=== PATIENT | male | born 1965 | race Caucasian/White ===

== ENCOUNTER 2024-05-12 16:59 | Emergency (ER) | payer SELFPAY ==
[2024-05-12 17:01] LABS: Glucose - Point of Care 101 mg/dl (70-99)
[2024-05-12 17:07] VITALS: BP 154/113
[2024-05-12 17:23] VITALS: BMI 36.2
[2024-05-12 17:25] VITALS: BP 138/89
[2024-05-12 17:25] LABS: % Basophils 0.7 % (0-2); % Eosinophils 0.9 % (0-6); % Immature Granulocytes 0.2 % (0-0.5); % Lymphocytes 38.1 % (20.5-51.1); % Monocytes 8.2 % (1.7-9.3); % Neutrophils 51.9 % (42.2-75.2); Absolute Basophils 0.1 10^3/uL (0-0.2); Absolute Eosinophils 0.1 10^3/uL (0-0.7); Absolute Lymphocytes 3.1 10^3/uL (1.2-3.4); Absolute Monocytes 0.7 10^3/uL (0.1-0.6); Absolute Neutrophils 4.2 10^3/uL (1.4-6.5); Hematocrit 44.5 % (39.0-52.0); Hemoglobin 15.8 g/dL (13.0-18.0); Mean Corp Hgb Conc. 35.5 g/dL (33.0-37.0); Mean Corpuscular Hgb 31.5 pg (27.0-31.0); Mean Corpuscular Volume 88.6 fL (80.0-94.0); Mean Platelet Volume 9.5 fL (7.4-10.4); Nucleated Red Blood Cells % 0 % (-); Platelet Count 250 10^3/uL (130-400); Red Blood Cell Count 5.02 10^6/uL (4.70-6.10); Red Cell Dist. Width 14.1 % (11.5-14.5); White Blood Cell Count 8.1 10^3/uL (4.8-10.8)
[2024-05-12 17:38] LABS: ALT (SGPT) 38 U/L (0-50); AST (SGOT) 28 U/L (17-59); Albumin 5.4 g/dl (3.5-5.0); Alkaline Phosphatase 67 U/L (38-126); Blood Urea Nitrogen 12 mg/dl (9-20); Calcium 9.4 mg/dl (8.4-10.2); Carbon Dioxide 19 mmol/L (22-30); Chloride 106 mmol/L (98-107); Estimated Creatinine Clearance 107 ml/min; Glucose 112 mg/dl (70-99); Potassium 4.2 mmol/L (3.5-5.1); Sodium 142 mmol/L (135-145); Total Bilirubin 0.7 mg/dl (0.2-1.3); Total Protein 7.8 g/dl (6.3-8.2); eGFR > 60.00
--- NOTE | 2024-05-12 17:47 | ED.GENMED ---
History of Present Illness
<QUINTEN Segura Last Filed: 05/12/24 18:46>
General
Chief Complaint: Change in Mental Status
Source: patient
Exam Limitations: none
Time Seen by Provider: 05/12/24 17:04
History of Present Illness
History of Present Illness:
58-year-old male called in as a rapid response from the hospital. He fell. He states he remembers falling. He does not remember hitting his head. He is not sure if he lost consciousness. Bystanders seem to think he was confused and a rapid
response was called. He is brought here to the emergency room. He seems to repeat himself. He denies any headache chest pain or shortness of breath. He notes only embarrassment from the fall. He denies any unilateral numbness or weakness.
Phy Exam
<QUINTEN Segura Last Filed: 05/12/24 18:46>
Physical Exam
Physical Exam:
General: Well-developed male no acute respiratory distress
HEENT: Normocephalic atraumatic
Heart: Regular rate and rhythm
Lungs: Clear no wheeze
Neurologic exam: Alert and oriented to person and place. There is an occasional slurred words but this is not consistent. There may be a subtle right-sided facial droop again this is not dorsalis obvious or consistent. No drift on exam
finger-nose intact. There is horizontal nystagmus noted.
Musculoskeletal exam: The spine is nontender good range of motion all extremities
Course
<QUINTEN Segura Last Filed: 05/12/24 18:46>
Orders/Labs/Results
Orders:
Orders
05/12/24 17:16
EKG [Electrocardiogram (*1)] Urgent
Reason for Study: Tachycardia
EKG- Treatment ONCE
05/12/24 17:17
Complete Blood Count/With Diff Urgent
Comprehensive Metabolic Panel Urgent
05/12/24 17:28
CT Head W/o Iv Contrast Urgent
Comment:
Reason For Exam: fall, confusion
05/12/24 17:36
Add On- LAB Urgent
Tests Added?: alcohol
05/12/24 17:46
Drug Screen, Urine [Urine Drug Abuse Screen] Urgent
Abnormal Lab Results
05/12/24 05/12/24
17:00 17:17
MCH 31.5 H pg
(27.0-31.0)
Absolute Monos (auto) 0.7 H 10^3/uL
(0.1-0.6)
Carbon Dioxide 19 L mmol/L
(22-30)
Glucose 112 H mg/dl
(70-99)
Albumin 5.4 H g/dl
(3.5-5.0)
POC Glucose 101 H mg/dl
(70-99)
05/12/24 17:17
05/12/24 17:17
Vital Signs
Initial and Last Documented VS:
Initial Vital Signs
Pulse Resp BP Pulse Ox
128 16 154/113 97
05/12/24 17:07 05/12/24 17:07 05/12/24 17:07 05/12/24 17:07
Last Documented Vital Signs
Temp Pulse Resp BP Pulse Ox
97.5 F 107 21 122/106 90
05/12/24 17:23 05/12/24 18:15 05/12/24 18:15 05/12/24 18:00 05/12/24 18:15
Mariannelt;Steve Feldman, DO - Last Filed: 05/12/24 18:42>
Orders/Labs/Results
Orders:
Orders
05/12/24 17:16
EKG [Electrocardiogram (*1)] Urgent
Reason for Study: Tachycardia
EKG- Treatment ONCE
05/12/24 17:17
Complete Blood Count/With Diff Urgent
Comprehensive Metabolic Panel Urgent
05/12/24 17:28
CT Head W/o Iv Contrast Urgent
Comment:
Reason For Exam: fall, confusion
05/12/24 17:36
Add On- LAB Urgent
Tests Added?: alcohol
05/12/24 17:46
Drug Screen, Urine [Urine Drug Abuse Screen] Urgent
Abnormal Lab Results
05/12/24 05/12/24
17:00 17:17
MCH 31.5 H pg
(27.0-31.0)
Absolute Monos (auto) 0.7 H 10^3/uL
(0.1-0.6)
Carbon Dioxide 19 L mmol/L
(22-30)
Glucose 112 H mg/dl
(70-99)
Albumin 5.4 H g/dl
(3.5-5.0)
POC Glucose 101 H mg/dl
(70-99)
05/12/24 17:17
05/12/24 17:17
Vital Signs
Initial and Last Documented VS:
Initial Vital Signs
Pulse Resp BP Pulse Ox
128 16 154/113 97
05/12/24 17:07 05/12/24 17:07 05/12/24 17:07 05/12/24 17:07
Last Documented Vital Signs
Temp Pulse Resp BP Pulse Ox
97.5 F 107 21 122/106 90
05/12/24 17:23 05/12/24 18:15 05/12/24 18:15 05/12/24 18:00 05/12/24 18:15
Mariannelt;Rudy Steele PA-C - Last Filed: 05/12/24 18:46>
MDM/Problems Addressed
Differential Diagnosis Includes:
Patient after a fall. He does seem somewhat off. Question head injury from fall for stroke versus intracranial hemorrhage versus medication reaction or intoxication
Labs pending drug screen pending CT head ordered.
<Rudy Steele PA-C - Last Filed: 05/12/24 18:46>
*Critical Care Note
Total Time (30-74mins, 75-104mins- exclusive of procedures): Not Applicable
<Rudy Steele PA-C - Last Filed: 05/12/24 18:46>
Update Note
Update Note:
Patient reexamined. Labs reviewed alcohol level pending. Drug screen pending. While waiting for CT of his head patient notified the nurse that he is not interested in having any further testing done. He is refusing a CAT scan of his head. I had
discussion with him that we are concerned for stroke or bleeding or other intracranial findings. I explained to him leaving now with potential result in further injury disability or and he understood this. He was concerned about the cost of
his testing here. He was alert and able to make decision at the time of reassessment. He signed AMA
ED Attending Note
<Rudy Steele PA-C - Last Filed: 05/12/24 18:46>
-
Portions of this chart may have been created with voice recognition software.� Occasional wrong word or��sound alike� substitutions may have occurred due to the inherent limitations of voice recognition software.
<Steve Feldman DO - Last Filed: 05/12/24 18:42>
ED Attending Note
Patient seen and examined by attending physician: Yes
I performed the substantive portion of visit, reviewed & personally made and approve the management plan that is documented in note by myself or CHRIS.: Yes
ED Attending Note:
I evaluated the patient at bedside. The patient consistently stated that he does not want to have any further testing done. He specifically does not want any CT head. He is worried about the cost. He easily names the month, the place, and the
reason for visit. I strongly recommend that he have further studies done emergently. I also told him them I am concerned if he waits to have this done as an outpatient setting. He verbalized understanding of this. He again refuses to have any
further done at this time.
Discharge Plan
Departure
Patient Disposition: Against Medical Advice
Date of Disposition: 05/12/24
Time of Disposition: 18:46
Patient with high blood pressure during this ER visit?: No
Discharge Problem:
Fall
Instructions: Altered Mental Status (DC)
Referrals:
Jorge Coleman, [Family Provider] -
Activity Restrictions/Additional Instructions:
As discussed we agreed recommended further evaluation including CAT scan while here. You have declined please return here for any other worsening concerning symptoms.
Interventions
Interventions:
*Risk Screen - Suicide Last Done: 05/12/24 17:23
*General Assessment Last Done: 05/12/24 17:23
*Neglect/Abuse Screening Last Done: 05/12/24 17:23
ED- Fall Risk Assessment Last Done: 05/12/24 17:23
*ED COVID-19 Vaccine History Last Done: 05/12/24 17:23
ED- Pulmonary Assessment Last Done: 05/12/24 18:02
ED- Neurological Assessment Last Done: 05/12/24 17:33
ED- Cardiac Assessment Last Done: 05/12/24 17:34
Discharge Date and Time
Print Language: SAUDI ARABIAN
[2024-05-12 18:00] VITALS: BP 122/106
--- NOTE | 2024-05-12 18:08 | EDRN ---
late entry----pt was a rapid on 2nd floor.pt fell in stairwell and got himself up. pt was unsteady on feet. pt placed in wheelchair and brought down to er for eval.
[2024-05-12 21:06] LABS: Alcohol 309 mg/dl
== END 2024-05-12 18:58 | disposition left against medical advice (07) ==
LOC: EMR 16:59
PROVIDERS: Physician Assistant; EMERGENCY PHYSICIAN Emergency Medicine; FAMILY PHYSICIAN Family Medicine
DX: Z04.3 Encounter for examination and observation following other accident (principal); R41.82 Altered mental status, unspecified; W19.XXXA Unspecified fall, initial encounter; Z53.29 Procedure and treatment not carried out because of patient's decision for other reasons
CPT/HCPCS: 99284; 80053; 82077; 82962; 85025; 93005

== ENCOUNTER → 2024-06-16 12:36 | Outpatient (REF) | payer BC, SELFPAY ==
[2024-06-16 13:53] LABS: % Basophils 0.8 % (0-2); % Eosinophils 1.6 % (0-6); % Immature Granulocytes 0.1 % (0-0.5); % Monocytes 7.6 % (1.7-9.3); % Neutrophils 69.9 % (42.2-75.2); Absolute Basophils 0.1 10^3/uL (0-0.2); Absolute Eosinophils 0.1 10^3/uL (0-0.7); Absolute Lymphocytes 1.4 10^3/uL (1.2-3.4); Absolute Monocytes 0.5 10^3/uL (0.1-0.6); Hematocrit 44.6 % (39.0-52.0); Hemoglobin 15.5 g/dL (13.0-18.0); Mean Corp Hgb Conc. 34.8 g/dL (33.0-37.0); Mean Corpuscular Hgb 30.9 pg (27.0-31.0); Mean Corpuscular Volume 88.8 fL (80.0-94.0); Mean Platelet Volume 11.3 fL (7.4-10.4); Nucleated Red Blood Cells % 0 % (-); Platelet Count 228 10^3/uL (130-400); Red Blood Cell Count 5.02 10^6/uL (4.70-6.10); Red Cell Dist. Width 13.2 % (11.5-14.5); White Blood Cell Count 7.1 10^3/uL (4.8-10.8)
[2024-06-16 14:30] LABS: Microalbumin, Random Urine < 0.6 mg/dl (0.6-1.7)
[2024-06-16 14:36] LABS: ALT (SGPT) 42 U/L (0-50); AST (SGOT) 29 U/L (17-59); Albumin 4.7 g/dl (3.5-5.0); Alkaline Phosphatase 65 U/L (38-126); Blood Urea Nitrogen 16 mg/dl (9-20); Calcium 9.5 mg/dl (8.4-10.2); Carbon Dioxide 27 mmol/L (22-30); Chloride 101 mmol/L (98-107); Glucose 91 mg/dl (70-99); HDL Cholesterol 33 mg/dl; LDL Cholesterol, Calculated 69 mg/dl; Potassium 3.9 mmol/L (3.5-5.1); Sodium 137 mmol/L (135-145); Total Bilirubin 0.6 mg/dl (0.2-1.3); Total Cholesterol 135 mg/dl (50-199); Total Protein 7.2 g/dl (6.3-8.2); Triglyceride 168 mg/dl (10-149); Very Low Density Lipoprotein 33 mg/dl (0-30); eGFR > 60.00
[2024-06-16 15:02] LABS: PSA, Total - Screen 0.47 ng/ml (0.0-4.0)
[2024-06-16 15:10] LABS: Vitamin D, 25-OH*** 26.1 ng/mL (30-80)
== END ==
LOC: REG 12:36
PROVIDERS: ATTENDING PHYSICIAN Family Medicine
DX: E55.9 Vitamin D deficiency, unspecified (principal); E66.9 Obesity, unspecified; F41.1 Generalized anxiety disorder; I10 Essential (primary) hypertension; Z00.01 Encounter for general adult medical examination with abnormal findings; K92.1 Melena
CPT/HCPCS: 36415; 80053; 80061; 82043; 82272; 82306; 82570; 85025; G0103